=== PATIENT | female | born 1990 | race Caucasian/White ===

== ENCOUNTER 2020-04-23 10:59 | Emergency (ER) | payer SELFPAY ==
[~2020-04-23] VITALS: Ht 170.2 cm; Wt 89.6 kg
[2020-04-23 11:05] VITALS: BP 164/108
[2020-04-23] MEDS ORDERED: CYCLOBENZAPRINE 10 MG TABLET. PO ONE (11:30)
[2020-04-23] MEDS ORDERED: HYDROcodone/APAP 5/325MG 1 TAB TABLET PO ONE (11:30)
--- NOTE | 2020-04-23 12:05 | RAD ---
Right shoulder 3 views 04/23/2020. Reason for exam: Pain. No history of trauma is given. No fracture or dislocation is seen. Joint spaces appear well-maintained. There is no apparent destructive process. IMPRESSION: No acute abnormality. Electronically signed by: Demarcus Hager Jr., MD (04/23/2020 12:02 PM) [facility]
[2020-04-23] MEDS ORDERED: HYDR-3165 PO (13:00)
[2020-04-23] MEDS ORDERED: LIDO700A21 TP (13:00)
--- NOTE | 2020-04-23 13:00 | PHYS DOC ---
Past History Past Medical History: No Pertinent History Past Surgical History: , Hysterectomy, Other Additional Past Surgical Histo: LEFT MIDDLE FINGER Additional Smoking Information: 1/2 PACK/DAY Alcohol Use: None General Adult EDM: Chief Complaint: SHOULDER INJURY HPI: HPI: The history was obtained from the patient. Patient is a 30-year-old female with no reported PMH who presents with a chief complaint of right shoulder pain. Patient states that last night she injured her right shoulder moving heavy totes from high in her closet. She states while moving 1 of the totes she heard a pop in her right shoulder noted immediate pain. She states she was able to ease the object down to the ground but she has had right lateral shoulder pain since. States pain is aching in nature. States it is worse with abduction and external rotation. Denies falls. Has not tried medicine at home. Denies numbness or tingling. Denies weakness. No other complaints. Review of Systems: Review of Systems: Constitutional: Denies fever or chills Eyes: Denies change in visual acuity HENT: Denies nasal congestion or sore throat Respiratory: Denies cough or shortness of breath Cardiovascular: Denies chest pain or edema GI: Denies abdominal pain, nausea, vomiting, bloody stools or diarrhea : Denies dysuria Musculoskeletal: Positive for right shoulder pain Integument: Denies rash Neurologic: Denies headache, focal weakness or sensory changes Endocrine: Denies polyuria or polydipsia Lymphatic: Denies swollen glands Psychiatric: Denies depression or anxiety Heart Score: Risk Factors: Risk Factors: DM, Current or recent (<one month) smoker, HTN, HLP, family history of CAD, obesity. Risk Scores: Score 0 - 3: 2.5% MACE over next 6 weeks - Discharge Home Score 4 - 6: 20.3% MACE over next 6 weeks - Admit for Clinical Observation Score 7 - 10: 72.7% MACE over next 6 weeks - Early Invasive Strategies Current Medications: Current Meds: Current Medications Medications (Trade) Dose Ordered Sig/Merlin Start Time Stop Time Status Last Admin Dose Admin Acetaminophen/ Hydrocodone Bitart (Lortab 5/325) 2 tab 1X ONCE 04/23/20 11:30 04/23/20 11:31 DC Cyclobenzaprine HCl (Flexeril) 10 mg 1X ONCE 04/23/20 11:30 04/23/20 11:31 DC 04/23/20 12:54 10 MG Allergies: Allergies: Allergies Coded Allergies Type Severity Reaction Last Updated Verified NSAIDS (Non-Steroidal Anti-Inflamma Allergy Unknown 04/23/20 Yes Penicillins Allergy Unknown 04/23/20 Yes Physical Exam: PE: Constitutional: Well developed, well nourished, no acute distress, non-toxic appearance. [] HENT: Normocephalic, atraumatic, bilateral external ears normal, oropharynx moist, no oral exudates, nose normal. [] Eyes: PERRLA, EOMI, conjunctiva normal, no discharge. [] Neck: Normal range of motion, no tenderness, supple, no stridor. [] Cardiovascular:Heart rate regular rhythm, no murmur [] Lungs & Thorax: Bilateral breath sounds clear to auscultation [] Abdomen: soft, no tenderness, no masses, no pulsatile masses. [] Skin: Warm, dry, no erythema, no rash. [] Back: No tenderness, no CVA tenderness. [] Extremities: SHOULDER: Clavicle pain is not present. Humerus pain is not present. Scapula without tenderness. Theres no obvious joint or bony deformity. Pain is present with ROM. Radial head is non-tender. No overlying erythema. Limited abduction and external rotation secondary to pain. Tenderness palpation over the supraspinatus and deltoid muscles. Neurologic: Alert and oriented X 3, normal motor function, normal sensory function, no focal deficits noted. [] Psychologic: Affect normal, judgement normal, mood normal. [] Current Patient Data: Vital Signs: Vital Signs Date Time Temp Pulse Resp B/P (MAP) Pulse Ox O2 Delivery O2 Flow Rate FiO2 04/23/20 11:05 97.7 110 20 164/108 (126) 95 Room Air EKG: EKG: [] Radiology/Procedures: Radiology/Procedures: [][address] [address] IMAGING REPORT Signed PATIENT: LANA ISLAS ACCOUNT: [id number] : 1990 LOCATION: ER AGE: 30 SEX: F EXAM STATUS: REG ER ORD. PHYSICIAN: ALVINA RAMSEY DO REASON: r shoulder pain PROCEDURE: SHOULDER 2+V RIGHT Right shoulder 3 views 04/23/2020. Reason for exam: Pain. No history of trauma is given. No fracture or dislocation is seen. Joint spaces appear well-maintained. There is no apparent destructive process. IMPRESSION: No acute abnormality. Electronically signed by: Elaine Hager Jr., MD (04/23/2020 12:02 PM) [facility] DICTATED AND SIGNED BY: ELAINE HAGER Jr, MD DATE: 04/23/20 1202 CC: PCPJULES; ALVINA RAMSEY DO ~ Course & Med Decision Making: Course & Med Decision Making Pertinent Labs and Imaging studies reviewed. (See chart for details) Patient is a 30-year-old female presents with a complaint of right shoulder pain after moving heavy tote objects. Initial vital signs unremarkable. Plain film imaging reveals no osseous abnormality. I do suspect the patient is experiencing ligamentous versus muscle injury. She does have pain with abduction and external rotation of the right shoulder joint. Patiently placed in a sling for comfort. She will be given analgesia for home. She will be referred to orthopedic surgeon for potential MRI imaging and further outpatient management. Patient symptoms were well controlled in the emergency department. Return precautions discussed and understood. Stable for discharge home. Dragon Disclaimer: DragTimecros Disclaimer: This electronic medical record was generated, in whole or in part, using a voice recognition dictation system. Departure Departure: Impression: Primary Impression: Right shoulder pain Qualified Codes: M25.511 - Pain in right shoulder Disposition: 01 HOME/RESIDENCE PRIOR TO ADM Condition: STABLE Referrals: PCPJULES (PCP) SEAN FERNANDEZ MD Patient Instructions: Rotator Cuff Injury Scripts Lidocaine (Lidocaine PATCH ) 1 Each Adh..patch 1 EACH TP DAILY for FOR LOCAL PAIN for 5 Days, #5 PATCH REMOVE AFTER 12 HOURS Prov: ALVINA RAMSEY DO 04/23/20 Hydrocodone Bit/Acetaminophen (NORCO 5-325 TABLET) 1 Each Tablet 1-2 TAB PO Q4-6HRS for pain for 5 Days, #10 TAB Prov: ALVINA RAMSEY DO 04/23/20 Justification of Admission: Justification of Admission: Justification of Admission Dx: N/A ALVINA RAMSEY DO Apr 23, 2020 13:00
== END 2020-04-23 13:27 | disposition home or self-care (01) ==
LOC: ER 10:59
DX: M25.511 Pain in right shoulder (principal); F17.200 Nicotine dependence, unspecified, uncomplicated; Z88.6 Allergy status to analgesic agent; Z88.0 Allergy status to penicillin
CPT/HCPCS: 73030; 99283